=== PATIENT | male | born 1930 | race Caucasian/White ===

== ENCOUNTER 2017-01-26 02:50 | Inpatient (IN) | payer OTHER ==
[2017-01-26] VITALS (7 sets, daily range): BP systolic 141–155; BP diastolic 60–80
[~2017-01-26] VITALS: Ht 185.4 cm; Wt 113.5 kg
[2017-01-26] MEDS ORDERED: BENAZEPRIL HYDR40 M1 PO (03:36)
[2017-01-26] MEDS ORDERED: ADULT LOW DOSE81 MG PO (03:36)
[2017-01-26] MEDS ORDERED: MECLIZINE HCL12.5 MG PO (03:37)
[2017-01-26] MEDS ORDERED: ZOLOFT100 MG PO (03:38)
[2017-01-26] MEDS ORDERED: METOPROLOL TART25 M1 PO (03:39)
[2017-01-26] MEDS ORDERED: PROTONIX40 MG PO (03:40)
[2017-01-26 03:47] LABS: UA SPECIFIC GRAVITY 1.025 (1.005-1.035); microscopic required? YES; urine erythrocyte TRACE (NEGATIVE)
[2017-01-26 03:56] LABS: BASOPHIL % 0.2 % (0-2)
[2017-01-26 03:57] LABS: PLATELET COUNT 112 x10^3mcL (130-400); RED CELL DISTRIBUTION WIDTH 15.3 % (11.5-14.5)
[2017-01-26 03:59] LABS: CALCIUM 8.7 mg/dL (8.5-10.1); CHLORIDE SERUM 106 mmol/L (98-107); CREATININE SERUM 1.4 mg/dL (0.7-1.3); GLUCOSE SERUM 99 mg/dL (74-106); POTASSIUM SERUM 3.8 mmol/L (3.5-5.1); SODIUM SERUM 142 mmol/L (136-145)
[2017-01-26 04:04] LABS: ALBUMIN 3.5 g/dL (3.4-5.0); ALKALINE PHOSPHATASE 101 U/L (46-116); ALT/SGPT 19 U/L (16-63); AST/SGOT 14 U/L (15-37); BILIRUBIN TOTAL 0.4 mg/dL (0.20-1.00); TOTAL PROTEIN, SERUM 7.3 g/dL (6.4-8.2)
[2017-01-26 04:13] LABS: CK-MB 0.9 ng/mL (0-3.6)
[2017-01-26 06:30] LABS: T3 TOTAL 1.03 ng/mL
[2017-01-26 06:31] LABS: CHOLESTEROL/HDL RATIO 2.8
[2017-01-26 06:41] LABS: FREE T4 0.97 ng/dL (0.76-1.46); FREE THYROXINE INDEX 2.1 ug/dL (1.4-4.5)
[2017-01-27 04:54] VITALS: BP 139/73
[2017-01-27 06:31] LABS: BASOPHIL % 0.3 % (0-2)
[2017-01-27 06:53] LABS: CALCIUM 8.1 mg/dL (8.5-10.1); CHLORIDE SERUM 109 mmol/L (98-107); CREATININE SERUM 1.1 mg/dL (0.7-1.3); GLUCOSE SERUM 96 mg/dL (74-106); MAGNESIUM 1.8 mg/dL (1.8-2.4); PHOSPHOROUS 2.4 mg/dL (2.5-4.9); POTASSIUM SERUM 3.7 mmol/L (3.5-5.1); SODIUM SERUM 140 mmol/L (136-145)
[2017-01-27 07:09] LABS: PLATELET COUNT 79 x10^3mcL (130-400); RED CELL DISTRIBUTION WIDTH 15.6 % (11.5-14.5)
[2017-01-27 08:49] VITALS: Ht 185.4 cm; Wt 113.5 kg
[2017-01-27 09:59] VITALS: BP 149/72
[2017-01-27 21:49] VITALS: BP 171/90
[2017-01-27 23:45] VITALS: BP 148/80
[2017-01-28 06:15] VITALS: BP 157/75
[2017-01-28 06:23] LABS: BASOPHIL % 0.4 % (0-2)
[2017-01-28 06:33] LABS: CALCIUM 8.3 mg/dL (8.5-10.1); CARBON DIOXIDE 23.6 mmol/L (21-32); CHLORIDE SERUM 106 mmol/L (98-107); CREATININE SERUM 1.1 mg/dL (0.7-1.3); GLUCOSE SERUM 105 mg/dL (74-106); MAGNESIUM 1.8 mg/dL (1.8-2.4); PHOSPHOROUS 2.9 mg/dL (2.5-4.9); POTASSIUM SERUM 3.6 mmol/L (3.5-5.1); SODIUM SERUM 139 mmol/L (136-145)
[2017-01-28 07:12] LABS: PLATELET COUNT 99 x10^3mcL (130-400); RED CELL DISTRIBUTION WIDTH 15.3 % (11.5-14.5)
[2017-01-28 11:24] VITALS: BP 132/57
[2017-01-28] MEDS ORDERED: IPRATROPIUM BROM3 M2 HHN (14:52)
[2017-01-28] MEDS ORDERED: LAC PO (14:53)
[2017-01-28] MEDS ORDERED: LEVAQUIN750 MG PO (14:54)
[2017-01-28] MEDS ORDERED: CLINDAMYCIN HC300 MG PO (14:54)
[2017-01-28 15:55] VITALS: BP 132/57
== END 2017-01-28 16:21 | DRG 871 ==
LOC: ED 02:50 → DU 04:26 → MU 01-28 09:01
PROVIDERS: Emergency Medicine; ADMIT Family Medicine
DX: A41.9 Sepsis, unspecified organism (principal); J69.0 Pneumonitis due to inhalation of food and vomit; N17.0 Acute kidney failure with tubular necrosis; K21.9 Gastro-esophageal reflux disease without esophagitis; R73.03 Prediabetes; F32.9 Major depressive disorder, single episode, unspecified; E83.51 Hypocalcemia; R65.20 Severe sepsis without septic shock; E83.39 Other disorders of phosphorus metabolism; I12.9 Hypertensive chronic kidney disease with stage 1 through stage 4 chronic kidney disease, or unspecified chronic kidney disease; N18.9 Chronic kidney disease, unspecified; E78.5 Hyperlipidemia, unspecified; R42 Dizziness and giddiness; Z79.82 Long term (current) use of aspirin; Z68.33 Body mass index [BMI] 33.0-33.9, adult; F03.90 Unspecified dementia, unspecified severity, without behavioral disturbance, psychotic disturbance, mood disturbance, and anxiety
CPT/HCPCS: 36600; 82962; 83880; 84439; 92610-GN; 97110-GP; 97530-GP; J1956; J3490; J7030; Q0092

== ENCOUNTER 2018-02-19 17:25 | Inpatient (IN) | payer OTHER ==
[~2018-02-19] VITALS: Ht 190.5 cm; Wt 104.5 kg
[~2018-02-19 17:25] MED LIST: ADULT LOW DOSE81 MG PO; BENAZEPRIL HYDR40 M1 PO; CLINDAMYCIN HC300 MG PO; IPRATROPIUM BROM3 M2 HHN; LAC PO; LEVAQUIN750 MG PO; MECLIZINE HCL12.5 MG PO; METOPROLOL TART25 M1 PO; PROTONIX40 MG PO; ZOLOFT100 MG PO
[2018-02-19 17:32] VITALS: Ht 190.5 cm; Wt 104.5 kg
[2018-02-19 18:42] LABS: BASOPHIL % 0.1 % (0-2)
[2018-02-19 18:44] LABS: UA SPECIFIC GRAVITY 1.025 (1.005-1.035); microscopic required? YES; urine erythrocyte 3+ (NEGATIVE)
[2018-02-19 18:45] LABS: PLATELET COUNT 95 x10^3mcL (130-400)
[2018-02-19 19:43] LABS: CALCIUM 9.2 mg/dL (8.5-10.1); CHLORIDE SERUM 105 mmol/L (98-107); CREATININE SERUM 1.5 mg/dL (0.7-1.3); GLUCOSE SERUM 114 mg/dL (74-106); POTASSIUM SERUM 4.3 mmol/L (3.5-5.1); SODIUM SERUM 141 mmol/L (136-145)
[2018-02-19 20:05] LABS: ALBUMIN 3.8 g/dL (3.4-5.0); ALKALINE PHOSPHATASE 106 U/L (46-116); ALT/SGPT 26 U/L (16-63); AST/SGOT 17 U/L (15-37); BILIRUBIN TOTAL 1.11 mg/dL (0.20-1.00); TOTAL PROTEIN, SERUM 8.2 g/dL (6.4-8.2)
[2018-02-19 20:09] LABS: CHOLESTEROL 130 mg/dL (<200)
[2018-02-19 20:21] VITALS: BP 155/80
[2018-02-19] MEDS ORDERED: LOSARTAN POTASS25 M1 PO (20:31)
[2018-02-19] MEDS ORDERED: PEPCID20 MG PO (20:32)
[2018-02-19 20:34] LABS: T3 TOTAL 1.33 ng/mL
[2018-02-19 20:56] LABS: AMPHETAMINE QUAL UR NONE DETECTED (See below)
[2018-02-19 21:22] LABS: MAGNESIUM 2.2 mg/dL (1.8-2.4); PHOSPHOROUS 2.6 mg/dL (2.5-4.9)
[2018-02-19 21:29] LABS: FREE T4 1.11 ng/dL (0.76-1.46); FREE THYROXINE INDEX 2.1 ug/dL (1.4-4.5); T4(THYROXINE) 5.9 ug/dL (4.7-13.3)
[2018-02-19 21:48] VITALS: BP 139/72
[2018-02-19 22:55] VITALS: BP 132/71
[2018-02-20 05:42] VITALS: BP 153/72
[2018-02-20 07:28] LABS: BASOPHIL % 0.3 % (0-2)
[2018-02-20 07:44] LABS: PLATELET COUNT 87 x10^3mcL (130-400)
[2018-02-20 07:46] LABS: CALCIUM 8.6 mg/dL (8.5-10.1); CARBON DIOXIDE 22.7 mmol/L (21-32); CHLORIDE SERUM 108 mmol/L (98-107); CREATININE SERUM 1.2 mg/dL (0.7-1.3); GLUCOSE SERUM 93 mg/dL (74-106); MAGNESIUM 1.9 mg/dL (1.8-2.4); PHOSPHOROUS 2.7 mg/dL (2.5-4.9); POTASSIUM SERUM 3.8 mmol/L (3.5-5.1); SODIUM SERUM 140 mmol/L (136-145)
[2018-02-20 09:14] VITALS: BP 146/79
[2018-02-20 16:40] VITALS: BP 161/74
[2018-02-20 17:13] VITALS: BP 161/74
[2018-02-20 19:08] VITALS: BP 151/74
[2018-02-20 20:45] VITALS: BP 136/64
[2018-02-21] VITALS (8 sets, daily range): BP systolic 136–166; BP diastolic 68–80
[2018-02-21 06:52] LABS: BASOPHIL % 0.1 % (0-2); RED CELL DISTRIBUTION WIDTH 14.5 % (11.5-14.5)
[2018-02-21 07:01] LABS: CALCIUM 8.4 mg/dL (8.5-10.1); CARBON DIOXIDE 24.5 mmol/L (21-32); CHLORIDE SERUM 106 mmol/L (98-107); CREATININE SERUM 1.1 mg/dL (0.7-1.3); GLUCOSE SERUM 100 mg/dL (74-106); POTASSIUM SERUM 4.1 mmol/L (3.5-5.1); SODIUM SERUM 138 mmol/L (136-145)
[2018-02-21 07:03] LABS: PLATELET COUNT 98 x10^3mcL (130-400)
[2018-02-21] MEDS ORDERED: KEFLEX500 M1 PO (11:55)
[2018-02-21] MEDS ORDERED: LAC PO (12:00)
[2018-02-22] VITALS (8 sets, daily range): BP systolic 126–164; BP diastolic 64–74
[2018-02-23 06:01] VITALS: BP 152/87
[2018-02-23 08:47] VITALS: BP 169/82
[2018-02-23 12:29] VITALS: BP 108/69
[2018-02-23 16:53] VITALS: BP 106/56
[2018-02-23 21:26] VITALS: BP 153/70
[2018-02-24 05:47] VITALS: BP 108/78
[2018-02-24 09:40] VITALS: BP 142/74
[2018-02-24 13:43] VITALS: BP 155/80
[2018-02-24 14:32] VITALS: BP 155/80
== END 2018-02-24 18:14 | disposition home or self-care (01) | DRG 871 ==
LOC: ED 17:25 → DU 19:26
PROVIDERS: Emergency Medicine; Internal Medicine
DX: A41.9 Sepsis, unspecified organism (principal); G93.41 Metabolic encephalopathy; N17.0 Acute kidney failure with tubular necrosis; I69.954 Hemiplegia and hemiparesis following unspecified cerebrovascular disease affecting left non-dominant side; N39.0 Urinary tract infection, site not specified; F05 Delirium due to known physiological condition; R65.20 Severe sepsis without septic shock; B96.1 Klebsiella pneumoniae [K. pneumoniae] as the cause of diseases classified elsewhere; F01.50 Vascular dementia, unspecified severity, without behavioral disturbance, psychotic disturbance, mood disturbance, and anxiety; I10 Essential (primary) hypertension; F32.9 Major depressive disorder, single episode, unspecified; K21.9 Gastro-esophageal reflux disease without esophagitis; R31.9 Hematuria, unspecified; Z68.29 Body mass index [BMI] 29.0-29.9, adult
CPT/HCPCS: 83880; 84439; 97110-GP; 97530-GP; G0480; J0696; J2060; J2405; J3490; J7030; Q0092

== ENCOUNTER 2018-07-08 16:01 | Emergency (ER) | payer OTHER ==
[~2018-07-08] VITALS: Ht 177.8 cm; Wt 95.3 kg
[~2018-07-08 16:01] MED LIST changes: +KEFLEX500 M1 PO; +LOSARTAN POTASS25 M1 PO; +PEPCID20 MG PO
[2018-07-08 16:20] VITALS: Ht 177.8 cm; Wt 95.3 kg
[2018-07-08 16:47] LABS: BASOPHIL % 0.6 % (0-2); RED CELL DISTRIBUTION WIDTH 14.2 % (11.5-14.5)
[2018-07-08 16:51] LABS: PLATELET COUNT 118 x10^3mcL (130-400)
[2018-07-08 16:58] LABS: CALCIUM 8.6 mg/dL (8.5-10.1); CHLORIDE SERUM 105 mmol/L (98-107); CREATININE SERUM 1.4 mg/dL (0.7-1.3); GLUCOSE SERUM 104 mg/dL (74-106); POTASSIUM SERUM 4.5 mmol/L (3.5-5.1); SODIUM SERUM 139 mmol/L (136-145)
[2018-07-08 17:02] LABS: ALBUMIN 3.7 g/dL (3.4-5.0); ALKALINE PHOSPHATASE 102 U/L (46-116); ALT/SGPT 24 U/L (16-63); AST/SGOT 12 U/L (15-37); BILIRUBIN TOTAL 0.47 mg/dL (0.20-1.00); HDL CHOLESTEROL 37 mg/dL (40-60); MAGNESIUM 2.2 mg/dL (1.8-2.4); PHOSPHOROUS 2.5 mg/dL (2.5-4.9); TOTAL PROTEIN, SERUM 8.1 g/dL (6.4-8.2)
[2018-07-08 17:04] LABS: CHOLESTEROL 124 mg/dL (<200)
[2018-07-08 17:19] LABS: microscopic required? NO
[2018-07-08 18:35] LABS: UA SPECIFIC GRAVITY 1.025 (1.005-1.035); urine erythrocyte NEGATIVE (NEGATIVE)
[2018-07-08 19:52] VITALS: BP 149/86
== END 2018-07-08 19:52 | disposition home or self-care (01) ==
LOC: ED 16:01
PROVIDERS: Emergency Medicine
DX: R11.10 Vomiting, unspecified (principal); N28.9 Disorder of kidney and ureter, unspecified; K21.9 Gastro-esophageal reflux disease without esophagitis; I10 Essential (primary) hypertension; Z86.73 Personal history of transient ischemic attack (TIA), and cerebral infarction without residual deficits
CPT/HCPCS: J2405; Q0092

== ENCOUNTER 2018-07-23 06:01 | Emergency (ER) | payer OTHER ==
[~2018-07-23] VITALS: Ht 185.4 cm; Wt 108.9 kg
[2018-07-23 06:10] VITALS: Ht 185.4 cm; Wt 108.9 kg
[2018-07-23 07:38] LABS: BASOPHIL % 0.3 % (0-2); RED CELL DISTRIBUTION WIDTH 14.3 % (11.5-14.5)
[2018-07-23 07:40] LABS: PLATELET COUNT 91 x10^3mcL (130-400)
[2018-07-23 07:44] LABS: CALCIUM 8.6 mg/dL (8.5-10.1); CARBON DIOXIDE 28.6 mmol/L (21-32); CHLORIDE SERUM 106 mmol/L (98-107); CREATININE SERUM 1.3 mg/dL (0.7-1.3); GLUCOSE SERUM 93 mg/dL (74-106); SODIUM SERUM 140 mmol/L (136-145)
[2018-07-23 07:48] LABS: ALKALINE PHOSPHATASE 84 U/L (46-116); ALT/SGPT 23 U/L (16-63); AST/SGOT 17 U/L (15-37); BILIRUBIN TOTAL 0.6 mg/dL (0.20-1.00); TOTAL PROTEIN, SERUM 6.9 g/dL (6.4-8.2)
[2018-07-23 07:51] LABS: ALBUMIN 3.2 g/dL (3.4-5.0)
[2018-07-23 09:16] LABS: microscopic required? NO
[2018-07-23 09:46] LABS: UA SPECIFIC GRAVITY 1.025 (1.005-1.035); urine erythrocyte NEGATIVE (NEGATIVE)
[2018-07-23 12:01] VITALS: BP 140/70
== END 2018-07-23 12:01 | disposition home or self-care (01) ==
LOC: ED 06:01
PROVIDERS: Emergency Medicine
DX: S01.81XA Laceration without foreign body of other part of head, initial encounter (principal); S09.8XXA Other specified injuries of head, initial encounter; G81.94 Hemiplegia, unspecified affecting left nondominant side; I10 Essential (primary) hypertension; K21.9 Gastro-esophageal reflux disease without esophagitis; Z86.73 Personal history of transient ischemic attack (TIA), and cerebral infarction without residual deficits; W08.XXXA Fall from other furniture, initial encounter; Y93.89 Activity, other specified; Y92.89 Other specified places as the place of occurrence of the external cause; Y99.8 Other external cause status
CPT/HCPCS: 36415; 90715; J2001

== ENCOUNTER 2018-08-07 17:04 | Emergency (ER) | payer OTHER ==
[~2018-08-07] VITALS: Ht 182.9 cm; Wt 98.9 kg
[2018-08-07 17:07] VITALS: Ht 182.9 cm; Wt 98.9 kg
[2018-08-07 19:01] VITALS: BP 165/83
== END 2018-08-07 19:01 | disposition home or self-care (01) ==
LOC: ED 17:04
DX: S01.01XA Laceration without foreign body of scalp, initial encounter (principal); I10 Essential (primary) hypertension; K21.9 Gastro-esophageal reflux disease without esophagitis; Z86.73 Personal history of transient ischemic attack (TIA), and cerebral infarction without residual deficits; W06.XXXA Fall from bed, initial encounter; Y93.89 Activity, other specified; Y92.89 Other specified places as the place of occurrence of the external cause; Y99.8 Other external cause status

== ENCOUNTER 2018-11-27 23:54 | Inpatient (IN) | payer OTHER ==
[~2018-11-27] VITALS: Ht 182.9 cm; Wt 90.7 kg
--- NOTE | 2018-11-28 00:19 | NUR ---
PT BROUGHT IN BY [facility] FROM [facility] FOR FEVER AND VOMITING TONIGHT. UPON ARRIVAL TO ED PT IS ALTERED. UNKNOWN NORMAL LOC. PT OPENS EYES INTERMITTENTLY BUT IS UNABLE TO FOLLOW COMMANDS. PT IN URINE SOAKED DIAPER. PER EMS PT HAS HX OF CVA WITH A L SIDED DEFICIT. UNABLE TO ASSESS AT THIS TIME. + 02 BY NC. IV SL IN L HAND. SKIN HOT TO TOUCH. PT PLACED IN ROOM 5. DIAPER REMOVED AND DRY GOWN APPLIED. MSE COMPLETED BY DR. TORRES. EKG COMPLETED. PLACED ON CM.
[2018-11-28 00:32] LABS: BASOPHIL % 0.3 % (0-2)
--- NOTE | 2018-11-28 00:32 | NUR ---
PT GIVEN APPLE JUICE, MADE AWARE.
[2018-11-28 00:34] LABS: PLATELET COUNT 102 x10^3mcL (130-400); RED CELL DISTRIBUTION WIDTH 14.6 % (11.5-14.5)
[2018-11-28 00:42] LABS: CALCIUM 8.4 mg/dL (8.5-10.1); CARBON DIOXIDE 25.1 mmol/L (21-32); CHLORIDE SERUM 105 mmol/L (98-107); CREATININE SERUM 1.4 mg/dL (0.7-1.3); GLUCOSE SERUM 134 mg/dL (74-106); SODIUM SERUM 139 mmol/L (136-145)
[2018-11-28 00:55] LABS: ALBUMIN 3.5 g/dL (3.4-5.0); ALKALINE PHOSPHATASE 90 U/L (46-116); ALT/SGPT 31 U/L (16-63); AST/SGOT 24 U/L (15-37); BILIRUBIN TOTAL 0.93 mg/dL (0.20-1.00); MAGNESIUM 1.8 mg/dL (1.8-2.4); TOTAL PROTEIN, SERUM 7.2 g/dL (6.4-8.2)
--- NOTE | 2018-11-28 02:04 | NUR ---
PT VOIDED IN BED, PT PROVIDED WITH PERICARE AND LINEN CHANGE. PT REPOSITIONED FOR COMFORT.
--- NOTE | 2018-11-28 02:24 | NUR ---
PT POSITIONED WITH ASSITANCE X 2, SITTING UP. PT AWAKE, RESPONDS TO NAME AND OBEYS COMMANDS.
[2018-11-28 02:35] LABS: UA SPECIFIC GRAVITY >=1.030 (1.005-1.035); microscopic required? YES; urine erythrocyte NEGATIVE (NEGATIVE)
--- NOTE | 2018-11-28 02:56 | NUR ---
PT TAKEN TO CT VIA MO
--- NOTE | 2018-11-28 03:32 | NUR ---
PT VOIDED, PERICARE, LINEN CHANGE AND CLEAN GOWN PROVIDED. PT REPOSITIONED TO COMFORT.
[2018-11-28 04:25] LABS: PHOSPHOROUS 2.2 mg/dL (2.5-4.9)
[2018-11-28 04:27] LABS: CHOLESTEROL/HDL RATIO 2.9
--- NOTE | 2018-11-28 04:33 | NUR ---
REPORT GIVEN TO KAYLA BANEGAS RN.
[2018-11-28 04:34] LABS: T3 TOTAL 0.95 ng/mL
[2018-11-28 04:42] LABS: FREE T4 1.01 ng/dL (0.76-1.46); FREE THYROXINE INDEX 2.7 ug/dL (1.4-4.5); T4(THYROXINE) 6.8 ug/dL (4.7-13.3)
--- NOTE | 2018-11-28 05:00 | NUR ---
RECEIVED PT IN BED FROM ED VIA FILOMENA ACCOMPANIED BY NURSE.LUNG SOUND CTA.NO SOB NOTED.O2SAT 96% RA.OPENS HIS EYES WHEN MOVED.UNABLE TO RESPOND TO VERBAL STIMULI.TELE# 21 NSR. NOTICED SCABS TO BACK AND LEFT KNEE CASINO SHIFT MANAGER,CDI. IV SITE PATENT AND INTACT.ABDOMEN SOFT. NO N&V NOTED.BED IN LOWEST POSITOIN,CALL LIGHT WITHIN REACH. WILL CONTINUE TO MONITOR.
[2018-11-28 05:16] VITALS: BP 155/83
[2018-11-28 06:27] LABS: CALCIUM 8.1 mg/dL (8.5-10.1); CARBON DIOXIDE 26.7 mmol/L (21-32); CHLORIDE SERUM 108 mmol/L (98-107); CREATININE SERUM 1.2 mg/dL (0.7-1.3); GLUCOSE SERUM 117 mg/dL (74-106); MAGNESIUM 2.1 mg/dL (1.8-2.4); PHOSPHOROUS 3.1 mg/dL (2.5-4.9); POTASSIUM SERUM 4.1 mmol/L (3.5-5.1); SODIUM SERUM 141 mmol/L (136-145)
[2018-11-28 06:32] LABS: BASOPHIL % 0.2 % (0-2)
[2018-11-28 06:47] LABS: PLATELET COUNT 101 x10^3mcL (130-400); RED CELL DISTRIBUTION WIDTH 14.8 % (11.5-14.5)
--- NOTE | 2018-11-28 07:18 | NUR ---
CAR ENDORSED TO DAY NURSE JC.
--- NOTE | 2018-11-28 07:45 | NUR ---
RECEIVED PATIENT SLEEPING, AROUSABLE. TOTAL HEARING LOSE TL. AND POOR VISION TL. PATIENT HAD HX OF CVA W/ LT SIDE WEAKNESS. BED RESTING NOW. TOTAL CARE NEEDED. TELE#21, SR W/ BBB. HR 62. NO S/S OF CHEST PAIN. NO RESP DISTRESS ON RA. O2 SAT 95% ON RA. ABD OBESE/SOFT. NO S/S OF ABD PAIN. FINISHED 50% OF CARDIAC DIET BREAKFAST BY FEEDING. NO N/V. URINE INCONT. NO EDEMA NOTED. IVF OF NS 100CC/HR INFUSING WELL TO R HAND. IVHL'D TO L HAND. NO S/S OF PAIN. TEACHING OF USEING CALL LIGHT GIVEN BY WRITTEN INFORMATION. BUT PATIENT UNABLE TO ACCEPT. BED ALARM ON. SIDE RAILS UP. ROOM CLOSED TO NURSING STATION.
--- NOTE | 2018-11-28 08:00 | NUR ---
LI CALLED BACK ABOUT PATIENT'S GLASSES. THEY STATED HIS GRANDSON CAN BRING IT SOMETIME TOMORROW. WILL RELAY INFORMATION TO PATIENT.
[2018-11-28 09:26] VITALS: BP 146/79
[2018-11-28] MEDS ORDERED: BENAZEPRIL HYDR40 M1 PO (11:44)
[2018-11-28] MEDS ORDERED: ASPIR 8181 MG PO (11:44)
[2018-11-28] MEDS ORDERED: LOSARTAN POTASS25 M1 PO (11:45)
[2018-11-28] MEDS ORDERED: PEPCID20 MG PO (11:45)
[2018-11-28] MEDS ORDERED: ZOLOFT100 MG PO (11:46)
[2018-11-28] MEDS ORDERED: METOPROLOL TART25 M1 PO (11:46)
[2018-11-28] MEDS ORDERED: ATIVAN0.5 M1 PO (11:47)
[2018-11-28] MEDS ORDERED: MECLIZINE HYDRO25 M1 PO (11:48)
[2018-11-28 13:36] VITALS: BP 151/68
[2018-11-28 17:09] VITALS: BP 106/70
[2018-11-28 17:17] VITALS: Ht 182.9 cm; Wt 90.7 kg
--- NOTE | 2018-11-28 17:30 | NUR ---
REPORTED PATIENT'S CT HEAD W/O CONTRAST TO DR. JETT. NEW ORDER OF ASA AND LOSATAN GIVEN PER ORDER.
--- NOTE | 2018-11-28 18:31 | NUR ---
PATIENT DEMENTIA, MENTASTA AND POOR VISION. DENIED PAIN. URINE INCONT, PAD CHANGED X3; HAD FORMED BM X1 THIS SHIFT. FINISHED 505 OF CARDIAC DIET DINNER. BED RESTING. ENDORSED CARE TO [facility] NURSE.
--- NOTE | 2018-11-28 19:10 | NUR ---
REPORT RECIEVED FROM DAY SHIFT RN. PATIENT WAS SEEN AND IS RESTING COMFORTABLY IN BED. ON ROOM AIR. BREATHING EVEN AND UNLABORED. NO DISTRESS NOTED. DENIES CHEST PAIN. NO C/O PAIN. A/0X2 TO SELF AND PLACE. CONFUSED. PATIENT IS ASKING ABOUT HIS GLASSES FROM [facility], WHERE HE CAME FROM. DAY SHIFT RN ALREADY CALLED AND THEY ARE STILL LOOKING FOR THEM. RELAYED THIS INFORMATION TO THE PATIENT. IV TO THE RIGHT HAND INFUSING NS WELL. IV TO THE LEFT HAND, SL. BOTH IVS PATENT AND INTACT. NO REDNESS OR SWELLING NOTED. PATIENT DENIES NAUSEA/VOMITTING. LEFT SIDED WEAKNESS. HX OF CVA. COMFORT AND SAFETY MEASURES MAINTAINED. BED IS LOCKED AND IN THE LOWEST POSITION. SIDE RAILS UP X2. CALL LIGHT IS WITHIN REACH. WILL CONTINUE TO MONITOR.
[2018-11-28 21:42] VITALS: BP 159/76
--- NOTE | 2018-11-29 00:44 | NUR ---
ADMINISTRATIVE RESOURCES ASSOCIATE REPORTED OPEN SKIN TEAR TO THE MID LOWER BACK, PREVIOUSL A SCAB, WHILE CHANGING THE PATIENT'S LINEN. SCANT SEROSANGUINOUS DRAINAGE NOTED. 1 X 1 X 0.1. NO PAIN. SURROUNDING SKIN WHITE. CLEANSED WITH NS, PATTED DRY, AND COVERED WITH AN ISLAND DRESSING. PATIENT TOLERATED WELL. PICTURE TAKEN AND IN CHART. CALL LIGHT IS WITHIN REACH. PATIENT MADE COMFORTABLE IN BED.
--- NOTE | 2018-11-29 02:40 | NUR ---
PATIENT IS RESTING WITH EYES CLOSED AT THIS TIME. NO DISTRESS NOTED. BREATHING EVEN ON ROOM AIR. IV TO THE RIGHT HAND INFUSING WELL. CALL LIGHT IS WITHIN REACH. WILL CONTINUE TO MONITOR.
--- NOTE | 2018-11-29 05:18 | NUR ---
PATIENT SLEPT IN LONG INTERVALS THROUGHOUT THE NIGHT. NO ACUTE/SIGNIFICANT CHANGES NOTED. BREATHIND EVEN ON ROOM AIR. NO DISTRESS NOTED. 2 IVS. LEFT HAND, SL. RFA INFUSING WELL. BOTH PATENT AND INTACT. ALL NEEDS AND CONCERNS ADDRESSED. NO C/O PAIN THROUGHOUT THE NIGHT. EDUCATED PATIENT ON ALL MEDS. ABLE TO MAKE NEEDS KNOWN. COMFORT AND SAFETY MEASURES MAINTAINED. CALL LIGHT IS WITHIN REACH. WILL ENDORSE CARE TO DAY SHIFT RN.
[2018-11-29 05:53] VITALS: BP 151/71
[2018-11-29 05:53] LABS: BASOPHIL % 0.6 % (0-2)
[2018-11-29 05:54] LABS: PLATELET COUNT 104 x10^3mcL (130-400); RED CELL DISTRIBUTION WIDTH 14.7 % (11.5-14.5)
[2018-11-29 06:32] LABS: CARBON DIOXIDE 26.7 mmol/L (21-32); CHLORIDE SERUM 108 mmol/L (98-107); CREATININE SERUM 1.2 mg/dL (0.7-1.3); GLUCOSE SERUM 93 mg/dL (74-106); MAGNESIUM 1.9 mg/dL (1.8-2.4); PHOSPHOROUS 2.9 mg/dL (2.5-4.9); POTASSIUM SERUM 3.9 mmol/L (3.5-5.1); SODIUM SERUM 143 mmol/L (136-145)
--- NOTE | 2018-11-29 07:40 | NUR ---
A+OX2, NEZ PERCE, TELE 21, PULSES MODERATE AND EQUAL TL, NO EDEMA NOTED, LUNG SOUNDS CTA, TOLERATING RA, BOWEL SOUNDS ACTIVE, INCONTINENT, GENERALIZED WEAKNESS, L SIDED WEAKNESS, SCAB TO L KNEE DOPING SUPERVISOR, SKIN TEAR TO LOWER BACK WITH ISLAND DRESSING CDI, IV IN L HAND SALINE LOCKED, SITE WNL, IV IN RFA WITH NS @ 75 ML/HR, SITE WNL.
[2018-11-29 09:30] VITALS: BP 118/67
--- NOTE | 2018-11-29 09:59 | NUR ---
TELE REMOVED AND RETURNED TO [facility]. PT NOW [facility].
--- NOTE | 2018-11-29 10:02 | NUR ---
PT RESTING IN BED, NO RESPRIATORY DSITRESS NOTED, DENIES PAIN, CONFUSED, CALL LIGHT WITHIN REACH.
--- NOTE | 2018-11-29 11:39 | NUR ---
PT VOIDED, PT CLEANED, LINENS CHANGED, PT PULLED UP, ABLE TO REPOSITION SELF, CONT TO BE CONFUSED, NO RESPRIATORY DSITRESS NOTED, CALL LIGHT WITHIN REACH.
--- NOTE | 2018-11-29 13:35 | NUR ---
ATTEMPTED TO FEED PT MULTIPLE TIMES AND PT REFUSING TO EAT. PT ATTMEPTING TO GET OUT OF BED. RESOURCE RN, BOTANY PROFESSOR, AND MYSELF IN ROOM TO MAKE SURE PT DOES NOT FALL. EXPLAINED TO PT THAT HE CANNOT GET UP AT THIS TIME BECAUSE HE WILL FALL. ALSO TRIED TO COMMUNICATE WITH PT BY WRITING ON PAPER BUT PT IS REFUSING TO READ PAPER.
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
--- NOTE | 2018-11-29 15:31 | NUR ---
PT CONT TO TRY TO GET OUT OF BED, AGITATED, COMBATIVE, ATIVAN IVP GIVEN. NO RESPIRATORY DISTRESS NOTED.
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
--- NOTE | 2018-11-29 16:04 | NUR ---
PT VOIDED, PT CLEANED, LINENS CHANGED, PT COMBATIVE HITTING HOG TENDER, BED ALARM ON, NO RESPRIATORY DSITRESS NOTED, CALL LIGHT WITHIN REACH.
[2018-11-29 16:35] VITALS: BP 152/83
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
--- NOTE | 2018-11-29 19:15 | NUR ---
RECEIVED PT LAYING IN BED, NO ACUTE DISTRESS OBSERVED. DENIES PAIN OR DISCOMFORT AT THIS TIME. AA/OX1, TO SELF ONLY, CONFUSED, SEIZURE PRECAUTIONS IN PLACE, CHICKEN RANCH B/L, NO DRAINAGE TO EENT. MED-SURG, NO TELE, NO CP. PULSES PRESENT AND EQUAL THROUGHOUT, NO EDEMA NOTED. BREATHING ON RA, EVEN AND UNLABORED, NO SOB OR DYSPNEA OBSERVED. ABD ROUND AND SOFT WITH ACTIVE BOWEL SOUNDS, NO N/V/D. INCONTINENT OF URINE, WILL PROVIDE PERICARE NEEDED. GENERALIZED WEAKNESS, HX OF CVA WITH L SIDED DEFICIT, CONTRACTURE TO LH. SCAB TO L KNEE, POLICE SUPERINTENDENT. SKIN TEAR TO MID BACK, ISLAND DRESSING IN PLACE, CDI. IV TO RFA IN PLACE, INFUSING IVF WELL, NO PAIN, REDNESS OR SWELLING NOTED. IV TO LH S/L, BOTH SITES DRY, PATENT, AND INTACT. PT IS AGITATED AND COMBATIVE WITH STAFF, RESISTIVE TO CARE. COMFORT AND SAFETY MEASURES IN PLACE. BED IN LOWEST POSITION WITH SIDE RAILS UPX2 AND BED ALARM ACTIVATED. CALL LIGHT WITHIN REACH. WILL CONTINUE TO MONITOR
--- NOTE | 2018-11-29 19:26 | NUR ---
ENDORSED CARE TO KITTY RIVERA.
[2018-11-29 21:20] VITALS: BP 175/105
--- NOTE | 2018-11-29 22:10 | NUR ---
PT HAD INCONTINENT EPISODE OF URINE. PERICARE PROVIDED. TURNED AND REPOSITIONED FOR COMFORT. PT RESISTIVE TO CARE AND UNWILLING TO HELP WITH TURNING AND REPOSITIONING.
--- NOTE | 2018-11-30 01:00 | NUR ---
PT FOUND WITH GOWN AND SHEETS THROWN ONTO FLOOR, ATTEMPTING TO AMBULATE WITHOUT ASSISTANCE, AND IV TO RFA REMOVED BY WITH CATH INTACT. PT IS AGITATED AND COMBATIVE, WHILE ATTEMPTING TO REORIENT PT, HE BEGAN SWINGING AT RN MULTIPLE ITEMS AND PT REMOVED OTHER IV TO LH WITH CATH INTACT. PT IS CONFUSED AND UNABLE TO BE REORIENTED AND REDIRECTED. PT REFUSES REINSERTION OF IV AT THIS TIME.
[2018-11-30 06:08] VITALS: BP 158/83
--- NOTE | 2018-11-30 06:22 | NUR ---
NO SIGNIFICANT CHANGES TO REPORT, PT COMPLIED WITH NURSING CARE THROUGHOUT THE SHIFT WITH NO ACUTE EVENTS OVERNIGHT. NO DISTRESS OBSERVED AT THIS TIME. PT LAYING IN BED, BREATHING EVEN AND UNLABORED. COMFORT AND SAFETY MEASURES MAINTAINED. ALL NEEDS ASSESSED AND ATTENDED TO. CALL LIGHT WITHIN REACH. WILL CONTINUE TO MONITOR
--- NOTE | 2018-11-30 07:34 | NUR ---
A+OX1, NO RESPRIATORY DSITRESS NOTED, CONFEDERATED COOS, SZ PREACUTIONS, MEDSURG, PULSES MODERATE AND EQUAL TL, NO EDEMA NOTED, LUNG SOUNDS CTA, TOELRATING RA, BOWEL SOUNDS ACTIVE, INCONTINENT, GENERALIZED WEAKNESS, L SIDE WEAKNESS, SCAB TO L KNEE RADHA, SKIN TEAR TO LOWER BACK WITH ISLAND DRESSING CDI, IV IN R WRIST WITH NS @ 75 ML/HR, SITE WNL.
[2018-11-30 09:38] VITALS: BP 178/82
--- NOTE | 2018-11-30 10:46 | NUR ---
PHYSICAL THERAPY NOTE ATTEMPTED FOR PHYSICAL THERAPY EVAL. PATIENT IS CONFUSED, DISORIENTED X3 AND REFUSED TO PARTICIPATE AT THIS TIME
--- NOTE | 2018-11-30 10:57 | NUR ---
PT VOIDED AND HAD BM, PT CLEANED, LINENS CHANGED, NO RESPIRATORY DISTRESS NOTED, IN NO APPARANT PAIN, CALL LIGHT WITHIN REACH.
--- NOTE | 2018-11-30 11:10 | NUR ---
PER PHYSICAL THERAPY, PT REFUSED TO DO PHYSICAL THERAPY AND WAS AGRESSIVE, VERBALLY ABUSIVE.
--- NOTE | 2018-11-30 11:48 | NUR ---
PT RESTING IN BED, NO RESPIRATORY DSITRESS NOTED, IN NO APPARANT PAIN, CALL LIGHT WITHIN REACH, BED ALARM ON.
--- NOTE | 2018-11-30 13:42 | NUR ---
PT ALLOWED ME TO FEED HIM SOME SOUP, BREAD, AND FRUIT, NO RESPRIATORY DSITRESS NOTED, IN NO APPARANT PAIN, CALL LIGHT WITHIN REACH. BED ALARM ON.
--- NOTE | 2018-11-30 13:54 | NUR ---
PHYSICAL THERAPY ATTEMPTED TO WORK WITH PT AGAIN AND PT CONT TO REFUSE.
--- NOTE | 2018-11-30 14:52 | NUR ---
PHYSICAL THERAPY NOTE PM - UNABLE TO ASSESS PATIENT AT THIS TIME SECONDARY TO CONFUSION AND DECREASE OVERALL PARTICIPATION LEVEL. PATIENT IS RESISTIVE WITH CONFUSION AND DECREASE OVERALL SAFETY. WILL RECOMMEND ATTEMPT EVAL AND TREATMENT ON NEXT VISIT. NURSING CONFIRMED AND AWARE.
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
[2018-11-30 17:00] VITALS: BP 168/88
--- NOTE | 2018-11-30 17:17 | NUR ---
PT RESTING IN BED, NO RESPIRATORY DSITRESS NOTED, IN NO APPARANT PAIN, BED ALARM ON, CALL LIGHT WITHIN REACH.
--- NOTE | 2018-11-30 18:09 | NUR ---
NORRIS RADAR TESTER NOTIFIED OF BP 168/68 AND STATED NO ADDITIONAL MEDS NEEDED AT THIS TIME AND CONT TO MONITOR.
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
--- NOTE | 2018-11-30 19:31 | NUR ---
ENDORSED CARE TO NANCY MCKENNA
--- NOTE | 2018-11-30 20:00 | NUR ---
PT IS AWAKE AND ORIENTED TO SELF. PT IS COMBATIVE, CONFUSED, AND RESISTANT TO CARE. NO SIGNS OF MARQUEZ OR DIZZINESS AT THIS TIME. NO SIGNS OF CP OR PRESSURE. PT HAS PALPABLE PULSES BILAT ALL EXTREMIIES. SCDS IN PLACE. PT AHS CLEAR LUNG SOUNDS. RESPIRATIONS EVEN AND UNLABORED ON ROOM AIR. NO SIGNS OF SOB. PT DENIES ABD PAIN AND N/V. ABD ROUND, SOFT, AND NONTENDER. PT HAS ACTIVE BOWEL SOUNDS. PT INCONTINENT OF BOWEL AND BLADDER. PT HAS GEN WEAKNESS WITH LEFT SIDE DEFICIT. PT HAS SCAB TO LEFT KNEE UNDERCOATER. SKIN TEAR NOTED TO MID LOWER BACK WITH DRESSING IN PLACE. IV FLUIDS NS RUNNING AT 75 ML/HR. IV PATENT WITH NO SIGNS OF INFILTRATION. NO SIGNS OF PAIN OR DISCOMFORT. NO SIGNS OF DISTRESS. WILL CONTINUE TO MONITOR.
[2018-11-30 21:05] VITALS: BP 113/59
--- NOTE | 2018-11-30 23:21 | NUR ---
PT REMAINS IN BED AT THIS TIME RESTING WITH EYES CLOSED. NO SIGNS OF DISTRESS. WILL CONTINEU TO MONITOR.
[2018-12-01 06:30] VITALS: BP 173/40
[2018-12-01 06:43] LABS: BASOPHIL % 0.3 % (0-2); RED CELL DISTRIBUTION WIDTH 14.4 % (11.5-14.5)
[2018-12-01 06:52] VITALS: BP 142/73
[2018-12-01 07:10] LABS: CALCIUM 8.3 mg/dL (8.5-10.1); CARBON DIOXIDE 24.1 mmol/L (21-32); CHLORIDE SERUM 104 mmol/L (98-107); CREATININE SERUM 1.1 mg/dL (0.7-1.3); GLUCOSE SERUM 93 mg/dL (74-106); POTASSIUM SERUM 3.7 mmol/L (3.5-5.1); SODIUM SERUM 139 mmol/L (136-145)
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
[2018-12-01 07:26] LABS: PLATELET COUNT 103 x10^3mcL (130-400)
[2018-12-01 09:44] VITALS: BP 155/82
--- NOTE | 2018-12-01 13:21 | NUR ---
IN TO ADMINISTER MEDICATION. IV NOTED INFILTRATED. NEW IV TO RFA. FLUIDS RESUMED.
--- NOTE | 2018-12-01 15:43 | NUR ---
IN TO SEE PATIENT AND ASSESS NEEDS AFTER LUNCH. PT SLEEPING COMFORTABLY IN BED ALL NEEDS MET.
--- NOTE | 2018-12-01 17:27 | NUR ---
SPOKE WITH DESIRE TO REQUEST PRN BP MED FOR PT BP 160/92. DESIRE ORDERED CLONIDINE 0.1MG Q6HP VIA TELEPHONE ORDER.
[2018-12-01 17:41] VITALS: BP 160/92
--- NOTE | 2018-12-01 19:26 | NUR ---
REPORT GIVEN TO RYAN RIVERA. PT RESTING COMFORTABLY IN BED. SEIZURE PRECAUTIONS IN PLACE. IV TO RFA IS PATENT AND INTACT. NO REDNESS OR PAIN. ALL NEEDS MET. ALL QUESTIONS AND CONCERNS ADDRESSED. ALL CARES ENDORSED.
--- NOTE | 2018-12-01 19:27 | NUR ---
RECEIVED PATIENT IN BED AWAKE WITH NO SIGN OF ACUTE RESPIRATORY DISTRESS. BREATHING EASY AND NON;ABOR SATTING AT 98% RA. ABDOMEN ROUND ,OBESE AND NONTENDER WITH ACTIVE BS. MED SURG PATIENT DENIES CHESTPAIN. IV TO RFA INTACT AND INFUSING WELL. WILL CONTINUE TO MONITOR. CALL LIGHT WITHIN REACH.
[2018-12-01 20:52] VITALS: BP 118/58
--- NOTE | 2018-12-02 00:03 | NUR ---
APPEARS SLEEPING AT THIS TIME BREATHING EASY AND NONLABOR. WILL CONTINUE TO MONITOR.
--- NOTE | 2018-12-02 05:06 | NUR ---
SLEPT FAIRLY, CHECKED AT INTERVALS FOR NEEDS AND SAFETY. ALL NEEDS ATTENDED.
[2018-12-02 06:13] VITALS: BP 159/79
[2018-12-02 06:16] LABS: BASOPHIL % 0.5 % (0-2); RED CELL DISTRIBUTION WIDTH 14.3 % (11.5-14.5)
[2018-12-02 06:29] LABS: CALCIUM 7.9 mg/dL (8.5-10.1); CARBON DIOXIDE 25.5 mmol/L (21-32); CHLORIDE SERUM 105 mmol/L (98-107); CREATININE SERUM 1.1 mg/dL (0.7-1.3); GLUCOSE SERUM 95 mg/dL (74-106); POTASSIUM SERUM 3.8 mmol/L (3.5-5.1); SODIUM SERUM 139 mmol/L (136-145)
[2018-12-02 06:30] LABS: PLATELET COUNT 107 x10^3mcL (130-400)
--- NOTE | 2018-12-02 07:20 | NUR ---
RECEIVED PT. IN BED AWAKE, ALERT. PT. IS ONLY ORIENTED TO PERSON. NOTED PT. SCREAMS/YELLS IN BED AT TIMES. NS RUNNING AT 75 CC/HR VIA IV SITE AT R FA. SCD TO BLE MAINTAINED. BED IN LOW POS., CALL LIGHT WITHIN REACH. SIDE RAILS UP X3.
[2018-12-02 09:27] VITALS: BP 150/93
--- NOTE | 2018-12-02 12:10 | NUR ---
NEW IV SITE RESTARTED AT L WRIST WITH GAUGE #22 DUE TO INFILTRATION OF OLD IV SITE.
--- NOTE | 2018-12-02 12:35 | NUR ---
PT. APPEARS VERY AGITATED. PT. IS RESTLESS AND ATTEMPTING TO GET OUT OF BED. PT. IS ALSO YELLING IN BED AND USING HIS R FOOT TO PUSH AGAINST THE SIDE RAIL. ATIVAN 0.5MG IV GIVEN.
--- NOTE | 2018-12-02 13:48 | NUR ---
Initial Nutrition Assessment: [place] Dx: Intractable vomiting, gastroenteritis, dehydration PMHx: HTN, GERD, CVA w/residual L sided weakness, dementia PSHx: Other (report of unsp cardiac surgery) Labs: Na 139, K 3.8, Ca 7.9L, Hgb 14.3, Hct. 43 Meds: Antivert, Catapres, Colace, Cozaar, Lactinex, Neutra-Phos packet, Oscal w/Vit. D, Pepcid, Sodium Chl. 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 Skin tear to right mid back covered w/island dressing. Esequiel: 14 Edema: None GI: Last BM: 12/01- Pt Visit: Pt was asleep when I entered the room. Spoke with RN El Ugalde who answered questions on behalf of pt. Nurse Tram was unsure of some of the questions due to that fact that she did not have a lot of the pt's history and his cognative state. Nurse Ugalde stated that pt's PO Intake is at least 50% as of today. Per H&P: This is an 88yoM with reported PMH HTN, GERD, CVA with residual L sided weakness, and dementia who presented to the ED via EMS from [facility] for c/o intractable nausea with vomiting and associated chills x2 days. On presentation to the ED, pt was unable to provide hx or ROS due to his baseline altered state, so remainder of hx was unable to be obtained. Pt presented alone in the EMS, and [place] was not able to be reached overnight, so home medications were not able to be reconciled. Pt with prior admission to [facility] past February 2018 for altered mental status and mechanical fall, and at that time was full code and was treated for UTI. Pt is incontinent at baseline, admitted with diaper from the [facility]. The patient's baseline is altered mental status due to hx of dementia and CVA with residual deficits. There are reports that pt ambulates with wheelchair for assistance, does not require home O2 at baseline, and is followed by Dr. Gann. Pt with [facility] insurance policy. Problem with: N: No V: No D: No C: No Problems with: Chewing: None Swallowing: None Current appetite: Unable to assess at this time Recent wt change: Unable to assess at this time %wt change: Unable to assess at this time Vitamin/Supplement use: None Special diet at home: None Physical activity: None Education: Not appropriate at this time. Estimated Nutritional Needs Based on ideal body weight 77kg Energy: 1925-2310kcal/d (25-30kcal/kg) (based on age>65yrs) Protein: 92-100 g/d (1.2-1.3g/kg) (based on age>65yrs for maintenance) Fluid: 1925-2310ml/d (25-30 ml/kcal) (based on age >65yrs) Nutrition Diagnosis 1. Increased energy needs r/t inflammation aeb diagnosis of gastroenteritis. Intervention 1. Continue with Cardiac- Low Chol/Low Fat/2g Na diet Monitor/Evaluate Goal: PO intake at least 75% of estimated needs Monitor: PO intake, Labs, GI function, tolerance of diet MR F/U 12/05-12/07
--- NOTE | 2018-12-02 13:49 | NUR ---
Intervention 1. Continue with Cardiac- Low Chol/Low Fat/2g Na diet
--- NOTE | 2018-12-02 15:20 | NUR ---
CALLED AND GAVE REPORT TO MIGUEL LAO AT [facility]. ALL QUESTIONS AND CONCERNS ADDRESSED.
[2018-12-02 16:30] VITALS: BP 143/86
--- NOTE | 2018-12-02 16:45 | NUR ---
DISCHARGE INSTRUCTIONS GIVEN TO PT. IV H/L TO L WRIST REMOVED. OLD IV SITE TO R FA WAS REMOVED EARLIER. PHOTOGRAPHS OF WOUND TO MID-BACK AND SCAB TO L KNEE TAKEN.
--- NOTE | 2018-12-02 17:34 | NUR ---
PT. IS BEING DISCHARGED TO [facility] IN STABLE CONDITION VIA S AMBULANCE. ALL BELONGINGS SENT WITH PT. UPON DISCHARGE.
--- NOTE | 2018-12-03 07:32 | NUR ---
PHYSICAL THERAPY DAILY NOTES CO-SIGN All documentation done by the Primer Assembler for 12/03/18 has been reviewed. I agree with the documentation. Reviewed/Co-Signed by: Kate Delarosa PT Documentation Done by:[facility]
== END 2018-12-02 17:38 | DRG 871 ==
LOC: ED 23:54 → DU 11-28 04:03 → MU 11-28 04:03 → DU 11-28 04:48 → MU 11-29 09:46
PROVIDERS: Emergency Medicine; Family Medicine; ADMIT Internal Medicine
DX: A41.9 Sepsis, unspecified organism (principal); G93.41 Metabolic encephalopathy; N17.0 Acute kidney failure with tubular necrosis; N39.0 Urinary tract infection, site not specified; E86.0 Dehydration; E83.51 Hypocalcemia; A08.4 Viral intestinal infection, unspecified; I10 Essential (primary) hypertension; R80.9 Proteinuria, unspecified; E83.39 Other disorders of phosphorus metabolism; F03.90 Unspecified dementia, unspecified severity, without behavioral disturbance, psychotic disturbance, mood disturbance, and anxiety; K21.9 Gastro-esophageal reflux disease without esophagitis; Z68.27 Body mass index [BMI] 27.0-27.9, adult; Z86.73 Personal history of transient ischemic attack (TIA), and cerebral infarction without residual deficits
CPT/HCPCS: 83880; 84439; 87804; 90732; 97110-GP; 97112-GP; 97530-GP; J0696; J1630; J2060; J2405; J2765; J7030

== ENCOUNTER 2018-12-13 20:01 | Emergency (ER) | payer OTHER ==
[~2018-12-13] VITALS: Ht 185.4 cm; Wt 113.4 kg
[~2018-12-13 20:01] MED LIST changes: +ASPIR 8181 MG PO; +ATIVAN0.5 M1 PO; +MECLIZINE HYDRO25 M1 PO
[2018-12-13 20:11] VITALS: Ht 185.4 cm; Wt 113.4 kg
[2018-12-13 20:43] LABS: BASOPHIL % 0.4 % (0-2); PLATELET COUNT 154 x10^3mcL (130-400)
[2018-12-13 20:45] LABS: RED CELL DISTRIBUTION WIDTH 14.6 % (11.5-14.5)
[2018-12-13 21:02] LABS: CALCIUM 9.1 mg/dL (8.5-10.1); CARBON DIOXIDE 28.1 mmol/L (21-32); CHLORIDE SERUM 104 mmol/L (98-107); CREATININE SERUM 1.4 mg/dL (0.7-1.3); GLUCOSE SERUM 117 mg/dL (74-106); POTASSIUM SERUM 4.7 mmol/L (3.5-5.1); SODIUM SERUM 139 mmol/L (136-145)
[2018-12-13 21:06] LABS: ALBUMIN 3.7 g/dL (3.4-5.0); ALKALINE PHOSPHATASE 108 U/L (46-116); ALT/SGPT 26 U/L (16-63); AST/SGOT 19 U/L (15-37); BILIRUBIN TOTAL 0.6 mg/dL (0.20-1.00); TOTAL PROTEIN, SERUM 8.3 g/dL (6.4-8.2)
[2018-12-13 23:04] LABS: microscopic required? YES
[2018-12-13 23:05] LABS: urine erythrocyte NEGATIVE (NEGATIVE)
[2018-12-14 01:50] VITALS: BP 142/74
== END 2018-12-14 01:50 | disposition home or self-care (01) ==
LOC: ED 20:01
PROVIDERS: Emergency Medicine
DX: E86.0 Dehydration (principal); I10 Essential (primary) hypertension; K21.9 Gastro-esophageal reflux disease without esophagitis; Z86.73 Personal history of transient ischemic attack (TIA), and cerebral infarction without residual deficits
CPT/HCPCS: J7030; Q0092

== ENCOUNTER 2018-12-14 07:37 | Emergency (ER) | payer OTHER ==
[~2018-12-14] VITALS: Ht 180.3 cm; Wt 81.6 kg
[2018-12-14 07:40] VITALS: Ht 180.3 cm; Wt 81.6 kg
[2018-12-14 08:30] LABS: BASOPHIL % 0.6 % (0-2); PLATELET COUNT 136 x10^3mcL (130-400); RED CELL DISTRIBUTION WIDTH 14.4 % (11.5-14.5)
[2018-12-14 08:34] LABS: CALCIUM 8.5 mg/dL (8.5-10.1); CARBON DIOXIDE 25.4 mmol/L (21-32); CHLORIDE SERUM 106 mmol/L (98-107); CREATININE SERUM 1.3 mg/dL (0.7-1.3); GLUCOSE SERUM 107 mg/dL (74-106); POTASSIUM SERUM 4.4 mmol/L (3.5-5.1); SODIUM SERUM 141 mmol/L (136-145)
[2018-12-14 08:41] LABS: ALKALINE PHOSPHATASE 94 U/L (46-116); ALT/SGPT 27 U/L (16-63); AST/SGOT 23 U/L (15-37); BILIRUBIN TOTAL 0.7 mg/dL (0.20-1.00); TOTAL PROTEIN, SERUM 7.4 g/dL (6.4-8.2)
[2018-12-14 08:51] LABS: ALBUMIN 3.3 g/dL (3.4-5.0)
[2018-12-14 08:54] LABS: AMPHETAMINE QUAL UR NONE DETECTED (See below)
[2018-12-14 09:48] LABS: UA SPECIFIC GRAVITY >=1.030 (1.005-1.035); microscopic required? YES; urine erythrocyte NEGATIVE (NEGATIVE)
[2018-12-14 12:05] VITALS: BP 167/75
== END 2018-12-14 12:05 | disposition short-term general hospital (02) ==
LOC: ED 07:37
PROVIDERS: Emergency Medicine
DX: R41.0 Disorientation, unspecified (principal); I10 Essential (primary) hypertension; K21.9 Gastro-esophageal reflux disease without esophagitis; Z86.73 Personal history of transient ischemic attack (TIA), and cerebral infarction without residual deficits
CPT/HCPCS: G0480; J7030

== ENCOUNTER 2018-12-25 22:31 | Inpatient (IN) | payer OTHER ==
[~2018-12-25] VITALS: Ht 182.9 cm; Wt 89.5 kg
--- NOTE | 2018-12-25 22:56 | NUR ---
XRAY AT BEDSIDE
--- NOTE | 2018-12-25 22:56 | NUR ---
PT BIB [facility] FROM [place] FOR N/V/D. PER MEDICS THE FACILITY REPORTS THE PT WAS RECENTLY D/C FROM THE HOSPITAL FOR THE SAME REASON. PER MEDICS THE FACILITY REPORTS THE PT HAS BEEN VOMITING FOR THE LAST COUPLE OF DAYS AND HAD ONE EPISODE OF DIAHRREHA 20 MINS PRIOR TO EMS ARRIVAL. PT HAS A HX OF A CVA IN THE PAST WITH LEFT SIDE DEFICITS. PT LOCALIZES TO PAIN AT THIS TIME BUT EMS REPORTS THE PT WAS ABLE TO TELL THEM HIS NAME BUT PT IS NON VERBAL AT THIS TIME. PT ABLE TO FOLLOW COMANDS. VITAL SIGNS STABLE. RESPIRATIONS EVEN AND UNLABORED. NO ACUTE DISTRESS NOTED. DR. BRADY COMPLETED MSE.
--- NOTE | 2018-12-25 23:25 | NUR ---
RECIEVED REPORT FROM TAY RIVERA, ASSUMING FURTHER CARE OF PT.
--- NOTE | 2018-12-25 23:31 | NUR ---
LAB AT BEDSIDE
[2018-12-25 23:44] LABS: BASOPHIL % 0.1 % (0-2); PLATELET COUNT 122 x10^3mcL (130-400); RED CELL DISTRIBUTION WIDTH 14.4 % (11.5-14.5)
--- NOTE | 2018-12-25 23:47 | NUR ---
UNABLE TO OBTAIN URINE SAMPLE FROM STRAIGHT CATH AT THIS TIME. STERILE TECHNIQUE MAINTAINED AND PT TOLERATED WELL BUT UNABLE TO OBTAIN ANY URINE. DR BRADY MADE AWARE. AWAITING ORDERS AT THIS TIME.
[2018-12-25 23:56] LABS: CALCIUM 8.7 mg/dL (8.5-10.1); CARBON DIOXIDE 24.8 mmol/L (21-32); CHLORIDE SERUM 102 mmol/L (98-107); CREATININE SERUM 2.3 mg/dL (0.7-1.3); GLUCOSE SERUM 119 mg/dL (74-106); POTASSIUM SERUM 4.4 mmol/L (3.5-5.1); SODIUM SERUM 140 mmol/L (136-145)
--- NOTE | 2018-12-25 23:57 | NUR ---
PT TO CT [facility]IA [facility].
[2018-12-25 23:59] LABS: ALBUMIN 3.7 g/dL (3.4-5.0); ALKALINE PHOSPHATASE 112 U/L (46-116); ALT/SGPT 28 U/L (16-63); AST/SGOT 17 U/L (15-37); BILIRUBIN TOTAL 0.5 mg/dL (0.20-1.00); LIPASE 172 IU/L (73-393); MAGNESIUM 2.2 mg/dL (1.8-2.4); TOTAL PROTEIN, SERUM 7.8 g/dL (6.4-8.2)
--- NOTE | 2018-12-26 00:06 | NUR ---
PT BACK FROM CT SCANNER. NO CHANGE IN STATUS. PT PLACED BACK ON CM. NS CONTINUES INFUSING.
--- NOTE | 2018-12-26 01:20 | NUR ---
PER DR BRADY, PT STRAIGHT CATH. STERILE TECHNIQUE MAINTAINED, PT TOLERATED WELL. APPROX 50 CC OF URINE OBTAINED FOR URINE SAMPLE. WILL CONTINUE TO MONITOR.
--- NOTE | 2018-12-26 01:47 | NUR ---
PT IS ABLE TO STATE NAME, BIRTHDAY, AND THAT HE IS IN THE HOSPITAL. PT IS ABLE TO SPEAK CLEARLY BUT ANSWERS ARE DELAYED. PT IS HARD OF HEARING AND STATES "I CANT HEAR YOU AND IM HAVING A HARD TIME UNDERSTANDING YOU". PT IN NAD. BREATHING EVEN AND UNLABORED. CM AND [address] WILL CONTINUE TO MONITOR.
[2018-12-26 01:56] LABS: UA SPECIFIC GRAVITY >=1.030 (1.005-1.035); microscopic required? YES; urine erythrocyte 1+ (NEGATIVE)
[2018-12-26 02:04] LABS: AMPHETAMINE QUAL UR NONE DETECTED (See below)
--- NOTE | 2018-12-26 02:45 | NUR ---
PT OBSERVED LAYING ON GURNEY IN NAD. BREATHING EVEN AND UNLABORED. PT EASILY AROUSABLE TO TOUCH. CM AND [address] WILL CONTINUE TO MONITOR.
--- NOTE | 2018-12-26 03:41 | NUR ---
CALLED REPORT TO J[place] RIVERA
--- NOTE | 2018-12-26 03:50 | NUR ---
PT TRANSFERED TO TELE AT THIS TIME VIA MO, ACCOMPANIED BY IMELDA FRAZIER AND RN ANDREA. PT EASILY AROUSABLE TO TOUCH. ABLE TO ANSWER QUESTIONS APPROPPRAITELY AT THIS TIME, DIFFICULTY REMAINING ON SPEAKING WITH PT DUE TO HEARING DEFICIETS. PT IN NAD. BREATHING EVEN AND UNLABORED.
[2018-12-26 04:09] LABS: FREE T4 1.18 ng/dL (0.76-1.46); FREE THYROXINE INDEX 2.1 ug/dL (1.4-4.5); T4(THYROXINE) 5.7 ug/dL (4.7-13.3)
[2018-12-26 04:11] LABS: T3 TOTAL 1.11 ng/mL
--- NOTE | 2018-12-26 04:35 | NUR ---
RECEIVED PT FROM ED VIA MO ACCOMPANIED BY RN AND CONCRETE PANEL INSTALLER. PT TRANSFERRED TO BED 238 WITH 2 PERSON ASSIST. PLACED ON TELE MONITOR 27, NSR. ADMITTED WITH C/O OF N/V/D. CURRENTLY ASLEEP AND AWAKENED BY STERNAL RUB. ORIENTED TO NAME, AND PLACE. SEVERELY [place], NO HEARING AIDS. UNABLE TO FULLY INTERVIEW PT PT KEPT FALLING ASLEEP. NOTED SCABS TO LLE; RASH TO FACE, CHEST AND BACK; OPEN WOUND TO L. BACK, PHOTOS TAKEN. IV TO RIGHT HAND, FLUSH AND PATENT, SITE WNL. CALL LIGHT WITHIN REACH, BED IN LOWEST POSITION, BED ALARM ON, SIDE RAILS UP X3. WILL CONTINUE TO MONITOR.
[2018-12-26 04:41] VITALS: BP 140/70
--- NOTE | 2018-12-26 05:40 | NUR ---
SPOKE TO DR. MCMULLEN. MADE AWARE OF OPEN WOUND TO R BACK AND SHOWED PICTURES. ALSO ASKED IF ROCEPHIN FROM ED WILL BE CONTINUED. STATED WILL ORDER ROCEPHIN.
--- NOTE | 2018-12-26 06:31 | NUR ---
PT IS AGIGITATED AND COMBATIVE UPON AROUSAL TO TACTILE STIMUILI ONLY. PT REFUSED PROTONIX AND LABS. PT THREW THE PROTONIX ON FLOOR AND LAB DRAW NEEDLE AT [facility] AFTER PULLING NEEDLE OUT OF ARM. DR. MCMULLEN NOTIFIED. BREATHING EVEN/UNLABORED ON RA. NO INDICATIONS OF PAIN AT THIS TIME. CALL LIGHT WITHIN REACH, BED IN LOWEST POSITION. BED ALARM ON. SIDERAILS UP X3. WILL ENDORSE TO DAY NURSE.
--- NOTE | 2018-12-26 07:25 | NUR ---
PT LETHARGIC.EASILY AAROUSABLE.NO SIGNS OF PAIN.LUNG SOUND DIM ON THE BASES.ON SR ON THE MONITOR.IVF NS GOING AT 100 ML/HR INFUSING WELL.CALL LIGHT WITHIN REACH. FREQUENT CHECKS IMPLEMENTED.WILL MOVE PT TO [facility] NEAR THE NURSES STATION FOR SAFETY.
--- NOTE | 2018-12-26 09:30 | NUR ---
PT WAS ABLE TO TOLERATE HIS MEDICINES.ABLE TO SWALLOW GOOD
[2018-12-26 09:36] VITALS: BP 144/77
--- NOTE | 2018-12-26 13:00 | NUR ---
PT MORE ALERT.TOLERATIN HIS LUNCH.ABLE TO FEED HIMSELF.
--- NOTE | 2018-12-26 13:30 | NUR ---
MOVED PT TO RM [address] B CLOSER TO THE NURSES STATION FOR CLOSE MONITORING.
[2018-12-26 14:00] VITALS: BP 124/60
[2018-12-26 17:32] VITALS: BP 154/70
--- NOTE | 2018-12-26 18:45 | NUR ---
PT ATE ONLY 30% OF HIS DINNER.CLAIMS TO BE NOT HUNGRY.
--- NOTE | 2018-12-26 18:47 | NUR ---
NO SIGNIFICANT CHANGE NOTED.WILL ENDORSE TO NEXT HSIFT.
[2018-12-26 19:20] VITALS: BP 154/70
--- NOTE | 2018-12-26 19:20 | NUR ---
RECEIVED REPORT FROM RAMA RN. PT IS RESTING IN BED WITH EYES CLOSED. NREATHING IS EVEN AND UNLABORED ON RM. PT IS ORIENTED TO PERSON AND PLACE WITH MOMENTS OF CONFUSION. PT IS EXTREMELY HARD OF HEARING AND ABLE TO BETTER COMMUNICATE THROUGH WRITING. LUNG SOUNDS DIMINISHED BILATERALLY. PT DENIES ANY PAIN OR DISCOMORT AT THIS TIME. CALL LIGHT WITHIN REACH. BED IN LOWEST POSITION. WILL CONTINUE TO MONITOR.
[2018-12-26 20:55] VITALS: BP 134/66
--- NOTE | 2018-12-26 23:49 | NUR ---
I HAVE REVIEWED THE DATA COLLECTION BY RN: JASMYNE SYKES ENTERED ON: 12/26/18 I CONCUR WITH THE DATA AND ANY EXCEPTIONS OR COMMENTS ARE LISTED BELOW:
--- NOTE | 2018-12-27 00:23 | NUR ---
RECEIVED NOTIFCATION PT IS POSITIVE FOR MRSA. DR. BYRNE NOTIFIED, PROTOCOL INITIATED.
--- NOTE | 2018-12-27 00:28 | NUR ---
SPOKE TO DR. BYRNE. MADE AWARE OF POSITIVE MRSA NARES. ALSO MADE AWARE DR. SAMUEL CALLED AND WOULD LIKE TO SPEAK TO A RESIDENT IN THE MORNING REGARDING A POSSIBLE CONSULTATION.
--- NOTE | 2018-12-27 01:42 | NUR ---
PT RESTING IN BED WITH EYES CLOSED. LAYING ON R SIDE. SNORING. NO SIGNS OF DISTRESS NOTED. BREATHING EVEN/UNLABORED ON RA. CALL LIGHT WITHIN REACH, BED AT LOWEST POSITION, SIDE RAILS UP X3, BED ALARM ON. WILL CONTINUE TO MONITOR.
[2018-12-27 05:48] VITALS: BP 93/51
--- NOTE | 2018-12-27 07:02 | NUR ---
PT AWAKE AND CONFUSED. PT IS COMBATIVE AND AGITATED. NO S/S OF PAIN AT THIS TIME. BREATHING EVEN/UNLABORED ON RA. CALL LIGHT WITHIN REACH, BED AT LOWEST POSITION, SIDE RAILS UP X3, BED ALARM ON. WILL ENDORSE TO ONCOMING RN.
[2018-12-27 07:37] LABS: CALCIUM 8.3 mg/dL (8.5-10.1); CARBON DIOXIDE 23.2 mmol/L (21-32); CHLORIDE SERUM 110 mmol/L (98-107); CREATININE SERUM 1.3 mg/dL (0.7-1.3); GLUCOSE SERUM 90 mg/dL (74-106); PHOSPHOROUS 2.5 mg/dL (2.5-4.9); POTASSIUM SERUM 4.1 mmol/L (3.5-5.1); SODIUM SERUM 142 mmol/L (136-145)
--- NOTE | 2018-12-27 07:38 | NUR ---
REPORT TAKEN FROM THE NIGHT SHFIT NURSE AT THE BEDSIDE, PT RESTING AT THIS TIME, CHEST RISE AND FALL OBSERVED. WILL CONTINUE TO MONITOR.
[2018-12-27 08:02] LABS: BASOPHIL % 0.5 % (0-2)
[2018-12-27 09:19] LABS: PLATELET COUNT 86 x10^3mcL (130-400); RED CELL DISTRIBUTION WIDTH 14.8 % (11.5-14.5)
[2018-12-27 13:50] VITALS: Ht 182.9 cm; Wt 89.5 kg
[2018-12-27 17:10] VITALS: BP 164/63
--- NOTE | 2018-12-27 19:39 | NUR ---
REPORT GIVEN TO LEAK DETECTION ENGINEER NURSE AT THE BEDSIDE, CARE ENDORSED
--- NOTE | 2018-12-27 19:54 | NUR ---
RECEIVED PT FROM DAY SHIFT RN. PT AAOX1-2 PT IS CONFUSED. HARD OF HEARING. TELE #27 FIRST DEGREE AVB ON MONITOR HR 84. DIMINISHED LUNG SOUNDS ON RA. UNABLE TO ASSESS SKIN PT IS UNCOOPERATIVE AT THIS TIME. IV RIGHT HAND PATENT, INFUSING WELL. SAFETY PRECAUTIONS IN PLACE. CALL BUTTON WITHIN REACH. CONTACT ISOLATION. WILL CONTINUE TO MONITOR.
[2018-12-27 20:00] VITALS: BP 161/86
--- NOTE | 2018-12-27 20:26 | NUR ---
PT RESTLESS, AGITATED TRYING TO GET UP. PT ASSISTED TO CHANGE IN BED AND REPOSITONED. MEDICATED PER EMAR. SAFETY PRECAUTIONS IN PLACE. WILL CONTINUE TO MONITOR.
[2018-12-27 21:00] VITALS: BP 147/80
--- NOTE | 2018-12-28 | NUR ---
PT RESTING, BREATHING EVEN AND UNLABORED WITH NO SIGNS OF DISTRESS NTOED. IV PATENT, INFUSING WELL. SAFETY PRECAUTIONS IN PLACE. CALL BUTTON WITHIN REACH. WILL CONTINUE TO MONITOR.
--- NOTE | 2018-12-28 05:01 | NUR ---
PT SLEPT MOST OF THE NIGHT WITH NO SIGNS OF DISTRESS NOTED. BREATHING EVEN AND UNLABORED ON RA WITH NO SOB NOTED. IV PATENT, INFUSING WELL NO SIGNS OF INFILTRATION NOTED. PT ABLE TO REPOSITIONED ON HIS OWN. MEDICATED PER EMAR. CONTACT ISOLATION. CALL BUTTON WITHIN REACH. SAFETY PRECAUTIONS IN PLACE. WILL CONTINUE TO MONITOR AND ENDORSE CARE TO DAY SHIFT RN.
[2018-12-28 05:43] VITALS: BP 165/66
--- NOTE | 2018-12-28 06:18 | NUR ---
PT BP THIS AM 165/66 HR 56, PER HEART MONITOR PT HR LOWERS TO THE LOW 40'S. PT RESTING, DENIES CHEST PAIN OR DISCOMFORT. NO SIGNS OF ACUTE DISTRESS NOTEED. DR VILLALOBOS PAGEEdilberto.
--- NOTE | 2018-12-28 07:29 | NUR ---
PT AWAKE NO SIGNS OF DISTRESS NOTED. ENDORSED CARE TO DAY SHIFT RN, ALL QUESTIONS ADDRESSED.
[2018-12-28 08:23] VITALS: BP 163/67
[2018-12-28 12:02] VITALS: BP 143/69
[2018-12-28] MEDS ORDERED: ROC1I IV (12:14)
[2018-12-28] MEDS ORDERED: APLICARE ANTIS118 M3 TOP (12:15)
[2018-12-28] MEDS ORDERED: BACO TOP (12:15)
--- NOTE | 2018-12-28 14:34 | NUR ---
Initial Nutrition Assessment- 248T/B GIOVANNY ARGUELLO IA HR Dx: DEMETRIUS, dehydration, vomiting PMHx: HTN, GERD,CVA with residual L sided weakness,Dementia PSHx: Unspecified cardiac surgery Labs: BUN 28H, CA 8.3L Meds: Colace, zofran Diet: Regular PO Intake: (12/27): 100% Ht: 182.88 cm (72") Wt: 89.4 kg (196#) BMI: 26.8 kg/m2 IBW: 178# (81 kg) %IBW: 110 UBW: unable to access Age: 88/M Food Allergies: NKFA Skin: R back open wound, scabs to LLE Esequiel:15 Edema: BLE GI: Last BM: 12/27 Trigger: N/V/D > 3d, poor PO >3d Per H&P, pt is a 88yo male with PMH of HTN, GERD, CVA with residual L sided weakness, and dementia who was brought to the ER by ambulance from [facility] for worseninf mental status and vomiting for 2 days. The history is mainly obtained from EMS and ER records due to patient's current mental status. Per records, patient had been vomiting for the past 2 days and also had an episode of non-bloody diarrhea 20mins prior to arrival. RDN visit (12/28): pt was sleeping. Per RN Reginald, pt does not have any N/V/D/C at this time. Pt ate about 50-60% of his lunch today. Problem with: N: no V: no D: no C: no Problems with: Chewing/Swallowing: no Current appetite: unable to access Recent wt change: unable to access Vitamin/Supplement use: unable to access Special diet at home: unable to access Physical activity: unable to access Education: pt was sleeping, will be attempted during a follow up visit. Estimated Nutritional Needs Based on ideal body weight 81 kg Energy:7111-8455 kcal/d (25-30 kcal/kg-maintenance) Protein: g/d (0.8-1.0 g/kg)-maintenance and preservation of lean body mass Fluid: per doctor Nutrition Diagnosis 1. Altered nutrition related lab values related to DEMETRIUS as evidenced by BUN 28 Intervention 1. Recommend continuing regular diet. Monitor/Evaluate Goal: PO intake at least 75% of estimated needs Monitor: PO intake, Labs, GI function F/U in 7 days as low risk 01/04
--- NOTE | 2018-12-28 14:34 | NUR ---
1. Recommend continuing regular diet.
--- NOTE | 2018-12-29 07:35 | NUR ---
PHYSICAL THERAPY DAILY NOTES CO-SIGN All documentation done by the Broker Associate for 12/29/18 has been reviewed. I agree with the documentation. Reviewed/Co-Signed by: Kate Delarosa PT Documentation Done by:SHAUNA VENTURA PTA FOR 12/28/18
== END 2018-12-28 14:46 | DRG 689 ==
LOC: ED 22:31 → DU 12-26 02:46
PROVIDERS: Emergency Medicine; ADMIT Family Medicine
DX: N39.0 Urinary tract infection, site not specified (principal); N17.0 Acute kidney failure with tubular necrosis; G93.41 Metabolic encephalopathy; I69.354 Hemiplegia and hemiparesis following cerebral infarction affecting left non-dominant side; E87.2 Acidosis; K52.9 Noninfective gastroenteritis and colitis, unspecified; I12.9 Hypertensive chronic kidney disease with stage 1 through stage 4 chronic kidney disease, or unspecified chronic kidney disease; E86.0 Dehydration; N18.3 Chronic kidney disease, stage 3 (moderate); K21.9 Gastro-esophageal reflux disease without esophagitis; R80.9 Proteinuria, unspecified; F01.50 Vascular dementia, unspecified severity, without behavioral disturbance, psychotic disturbance, mood disturbance, and anxiety; F32.9 Major depressive disorder, single episode, unspecified; Z99.3 Dependence on wheelchair; Z79.82 Long term (current) use of aspirin; Z68.27 Body mass index [BMI] 27.0-27.9, adult
CPT/HCPCS: 82962; 84439; 97110-GP; 97530-GP; G0480; J0696; J2405; J7030